=== PATIENT | female | born 1955 | race Caucasian/White ===

== ENCOUNTER 2019-07-27 09:11 | Day surgery (SDC) | payer MEDICARE ==
[2019-07-26 10:29] VITALS: BMI 34.7
[2019-07-27] MEDS ORDERED: Ketorolac Tromethamine 30 MG/ML VIAL ONE (09:41)
[2019-07-27] MEDS ORDERED: Acetaminophen 500 MG TAB ONE (09:41)
[2019-07-27 10:06] LABS: #Basophils 0.1 thou/uL (0.0-0.2); #Eosinphils 0.3 thou/uL (0.0-0.7); #Lymphocytes 2.1 thou/uL (1.20-3.40); #Monocytes 0.5 thou/uL (0.11-0.59); #Neutrophils 3.4 thou/uL (1.40-6.50); %Basophils 1.4 % (0.0-1.0); %Eosinophils 4.3 % (0.0-10.0); %Lymphocytes 32.6 % (21.0-51.0); %Monocytes 8.3 % (0.0-10.0); %Neutrophils 53.4 % (42.0-75.0); Hemoglobin 12.9 g/dL (12.0-16.0); Mean Corpuscular HGB CONC 33.4 g/dL (32.0-36.0); Mean Corpuscular Hemoglobin 31.2 pg (27.0-31.0); Mean Corpuscular Volume 93.4 fL (78.0-98.0); Mean Platelet Volume 8.9 fL (7.4-10.4); Platelet Count 253 thou/uL (130-400); RBC Distribution Width 12.8 % (11.5-14.5); Red Blood Cell (RBC) Count 4.13 mill/uL (4.20-5.40); White Blood Cell (WBC) Count 6.5 thou/uL (4.8-10.8)
[2019-07-27 10:31] LABS: ALT (SGPT) 27 U/L (8-55); AST (SGOT) 55 U/L (5-34); Albumin 4.1 g/dL (3.4-4.8); Alkaline Phosphatase 91 U/L (40-110); Anion Gap 12 mmol/L (10-20); BUN (Urea Nitrogen) 16 mg/dL (9.8-20.1); Bilirubin, Total 0.4 mg/dL (0.2-1.2); Calc. Creatinine Clearance 77 mL/min (70-130); Calcium 9.4 mg/dL (7.8-10.44); Carbon Dioxide 29 mmol/L (23-31); Chloride 103 mmol/L (98-107); Estimated GFR-MDRD 46; Globulin 2.9 g/dL (2.4-3.5); Glucose 87 mg/dL (80-115); Sodium 139 mmol/L (136-145)
[2019-07-27] MEDS ORDERED: Ondansetron PF 4 MG/2 ML Vial ONE ×2 (10:35→11:46)
[2019-07-27] MEDS ORDERED: Scopolamine 1.5 mg/72 hour Patch ONE (10:35)
[2019-07-27] MEDS ORDERED: Lidocaine 1% w/Epinephrine 1:100K 20 ML VIAL ONE (11:27)
[2019-07-27] MEDS ORDERED: Bupivacaine 0.25% HCL 30 ML VIAL ONE (11:27)
[2019-07-27] MEDS ORDERED: Fentanyl 100 MCG/2 ML VIAL ONE (11:28)
[2019-07-27] MEDS ORDERED: Iothalamate Meglumine 60% 50 ML VIAL FS ONE (11:37)
[2019-07-27] MEDS ORDERED: ePHEDrine/0.9% NaCl/PF SYRINGE 50 mg/10 ml ONE (11:46)
[2019-07-27] MEDS ORDERED: Glycopyrrolate 0.2 MG/ML 5 ML SYRINGE ONE (11:46)
[2019-07-27] MEDS ORDERED: PROPOFOL 200 MG/20 ML VIAL ONE (11:46)
[2019-07-27] MEDS ORDERED: Rocuronium Bromide 10 MG/ML (10ML VIAL) ONE (11:46)
[2019-07-27] MEDS ORDERED: Lidocaine 1% PF 5 ML VIAL ONE (11:46)
--- NOTE | 2019-07-27 12:56 | RAD ---
EXAM: Cholangiogram in surgery HISTORY: Cholelithiasis COMPARISON: None FINDINGS: Limited intraoperative fluoroscopic views were taken during a cholangiogram in surgery. The common bile duct is normal in caliber without filling defect. No leakage from the common bile duct. Contrast passes into the duodenum. No abnormality of the intrahepatic bile ducts. IMPRESSION: Unremarkable cholangiogram
--- NOTE | 2019-07-27 20:34 | OP ---
DATE OF PROCEDURE: 07/27/2019 PREOPERATIVE DIAGNOSIS: Symptomatic cholelithiasis with a recent liver function test elevation. POSTOPERATIVE DIAGNOSIS: Symptomatic cholelithiasis with a recent liver function test elevation. PROCEDURE PERFORMED: Laparoscopic cholecystectomy with intraoperative cholangiogram. ANESTHESIA: General endotracheal. INDICATIONS: The patient is an obese 64-year-old white female. She presented recently with symptoms referable to gallbladder and substantial liver function test elevation. She was taken to the operative room at this time for cholecystectomy and cholangiogram. DESCRIPTION OF OPERATION: Informed consent was obtained. The patient was taken to the operating room where general endotracheal anesthesia was obtained with the patient in the supine position. The abdomen was prepped with ChloraPrep, draped in sterile fashion. Local anesthetic was infiltrated using 0.25% Marcaine with epinephrine. Infraumbilical incision was created and a Veress needle was passed. Peritoneal cavity and pneumoperitoneum established using carbon dioxide to pressure of 15 mmHg. An 11 mm trocar port was passed through the same incision. Laparoscopic camera was passed through this port. Under direct vision, 3 additional 5 mm right upper quadrant ports were placed. Attention was turned to the liver and the gallbladder. The liver was without substantial abnormality. There was certainly no nodularity and there was minimal fatty change. The gallbladder was grasped and retracted in cephalad direction. There were no pericholecystic adhesions or evidence of acute inflammation. The infundibulum was grasped and retracted laterally and inferiorly. Careful dissection was carried at the apex of the gallbladder to identify the cystic duct and cystic artery. The artery was divided between clips leaving 2 on the side to remain within the abdomen. The duct was clipped proximally and a cholangiogram was obtained. This demonstrated normal ductal anatomy without substantial ductal dilatation and certainly no evidence of obstruction or intraluminal defect. The cholangiocatheter was removed. There was some sludge and small stone type material that refluxed back out of the duct after the procedure. The duct was doubly clipped and divided. The gallbladder was dissected out of the gallbladder fossa using electrocautery. The gallbladder was removed through the umbilical port site. The fascia was closed with 0 Vicryl suture using a GraNee needle. The right upper quadrant was copiously irrigated and all irrigant was aspirated. There was no evidence of bleeding and/or bile leak. The clips were intact. All ports and instruments were removed under direct vision. Pneumoperitoneum was carefully evacuated. 0.25% Marcaine with epinephrine was infiltrated into each port site. Skin edges approximated with 4-0 Monocryl subcuticular suture. Dermabond was placed externally. There were no complications. The patient tolerated the procedure well and was taken to recovery room in stable condition. Job ID: [id number]
== END 2019-07-27 15:05 | disposition home or self-care (01) ==
LOC: SDC 09:11
PROVIDERS: ATTEND Specialist
PROC: 0FT44ZZ Resection of Gallbladder, Percutaneous Endoscopic Approach (ICD-10-PCS; principal; 2019-07-27)
PROC: BF101ZZ Fluoroscopy of Bile Ducts using Low Osmolar Contrast (ICD-10-PCS; 2019-07-27)
DX: K80.10 Calculus of gallbladder with chronic cholecystitis without obstruction (principal); R79.89 Other specified abnormal findings of blood chemistry; I10 Essential (primary) hypertension; E78.00 Pure hypercholesterolemia, unspecified; E66.9 Obesity, unspecified; Z68.34 Body mass index [BMI] 34.0-34.9, adult; Z79.899 Other long term (current) drug therapy; Z88.1 Allergy status to other antibiotic agents
CPT/HCPCS: 36415; 47532; 80053; 85025; 88304; 93005; 93010; J0690; J1885; J2001; J2405; J2704; J3010; S0020

== ENCOUNTER 2020-07-26 11:42 | Inpatient (IN) | payer MEDICARE ==
[~2020-07-26 11:42] MED LIST: Iopamidol-370 76% 500 ML 1 ML ONE
[2020-07-26] MEDS ORDERED: Ondansetron PF 4 MG/2 ML Vial ONE (12:30)
[2020-07-26 13:39] LABS: #Eosinphils 0.3 thou/uL (0.0-0.7); #Lymphocytes 2.9 thou/uL (1.20-3.40); #Monocytes 0.8 thou/uL (0.11-0.59); #Neutrophils 3.6 thou/uL (1.40-6.50); %Basophils 0.5 % (0.0-1.0); %Eosinophils 3.7 % (0.0-10.0); %Lymphocytes 37.9 % (21.0-51.0); %Monocytes 10.4 % (0.0-10.0); %Neutrophils 47.5 % (42.0-75.0); Hemoglobin 11.7 g/dL (12.0-16.0); Mean Corpuscular HGB CONC 33.6 g/dL (32.0-36.0); Mean Corpuscular Hemoglobin 31.5 pg (27.0-31.0); Mean Corpuscular Volume 93.8 fL (78.0-98.0); Mean Platelet Volume 7.6 fL (7.4-10.4); Platelet Count 323 thou/uL (130-400); RBC Distribution Width 13.3 % (11.5-14.5); Red Blood Cell (RBC) Count 3.71 mill/uL (4.20-5.40); White Blood Cell (WBC) Count 7.7 thou/uL (4.8-10.8)
[2020-07-26 14:12] LABS: ALT (SGPT) 18 U/L (8-55); AST (SGOT) 40 U/L (5-34); Albumin 3.7 g/dL (3.4-4.8); Alkaline Phosphatase 104 U/L (40-110); Anion Gap 14 mmol/L (10-20); BUN (Urea Nitrogen) 5 mg/dL (9.8-20.1); Bilirubin, Total 0.4 mg/dL (0.2-1.2); Calc. Creatinine Clearance 0 mL/min (70-130); Carbon Dioxide 26 mmol/L (23-31); Chloride 100 mmol/L (98-107); Globulin 2.8 g/dL (2.4-3.5); Glucose 103 mg/dL (80-115); Potassium 4.6 mmol/L (3.5-5.1); Protein, Total 6.5 g/dL (5.8-8.1); Sodium 135 mmol/L (136-145)
[2020-07-26] MEDS ORDERED: Vancomycin HCl 25 MG/ML Oral PO SCH (14:45)
[2020-07-26] MEDS ORDERED: metroNIDAZOLE 500 MG/100 ML BAG ONE (15:12)
[2020-07-26 15:58] LABS: Bilirubin Negative (Negative); Blood, Urine Negative (Negative); Clarity Clear (Clear); Glucose, Urine (Dipstick) Normal (Negative); Ketone, Urine Negative (Negative); Leukocyte Negative Leu/uL (Negative); Nitrite Negative (Negative); Protein, Urine (Dipstick) Negative (Neg-Trace); Specific Gravity, Urine 1.004 (1.002-1.036); Urobilinogen Normal mg/dL (Less than 2); pH, Urine 6.5 (5.0-9.0)
[2020-07-26] MEDS ORDERED: Acetaminophen 325 MG TAB PO PRN (17:07)
[2020-07-26] MEDS ORDERED: Guaifenesin DM 100-10/5 ML UDCUP PO PRN (17:07)
[2020-07-26] MEDS ORDERED: Acetaminophen 650 MG Suppository PR PRN (17:07)
[2020-07-26] MEDS: Sodium Chloride 0.9% 1,000 ML IV SCH (18:11)
[2020-07-26] MEDS ORDERED: Calcium Carbonate 500 MG ChewTAB PO PRN (18:41)
[2020-07-26] MEDS ORDERED: traMADol HCl 50 MG TAB PO PRN (18:41)
[2020-07-26] MEDS: Vancomycin HCl 25 MG/ML Oral PO SCH (21:00)
[2020-07-26] MEDS: Rosuvastatin 10 MG TAB PO SCH (21:49)
[2020-07-26] MEDS: Enoxaparin Sodium 30 MG/0.3 ML SYRINGE SC SCH (21:49)
[2020-07-26] MEDS: Famotidine 20 MG TAB PO SCH (21:49)
[2020-07-26] MEDS: metroNIDAZOLE 500 MG in Premix Bag 1 BAG IVPB SCH (21:50)
[2020-07-26] MEDS: rOPINIRole HCl 1 MG TAB PO SCH (21:50)
[2020-07-26] MEDS: Ondansetron ODT 4 MG TAB PO PRN (22:59)
[2020-07-27] MEDS: Vancomycin HCl 25 MG/ML Oral PO SCH ×2 (02:51→11:20)
[2020-07-27] MEDS: Sodium Chloride 0.9% 1,000 ML IV SCH ×3 (03:09→21:42)
[2020-07-27] MEDS: Ondansetron PF 4 MG/2 ML Vial IVP PRN ×3 (03:10→21:40)
[2020-07-27] MEDS: rOPINIRole HCl 1 MG TAB PO SCH ×3 (05:30→21:39)
[2020-07-27] MEDS: metroNIDAZOLE 500 MG in Premix Bag 1 BAG IVPB SCH ×3 (05:30→21:41)
[2020-07-27 06:27] LABS: #Eosinphils 0.3 thou/uL (0.0-0.7); #Lymphocytes 2.9 thou/uL (1.20-3.40); #Monocytes 0.8 thou/uL (0.11-0.59); #Neutrophils 2.5 thou/uL (1.40-6.50); %Basophils 0.5 % (0.0-1.0); %Eosinophils 4.3 % (0.0-10.0); %Lymphocytes 44.5 % (21.0-51.0); %Monocytes 12.4 % (0.0-10.0); %Neutrophils 38.3 % (42.0-75.0); Hemoglobin 9.9 g/dL (12.0-16.0); Mean Corpuscular HGB CONC 32.9 g/dL (32.0-36.0); Mean Corpuscular Hemoglobin 30.6 pg (27.0-31.0); Mean Platelet Volume 7.3 fL (7.4-10.4); Platelet Count 259 thou/uL (130-400); RBC Distribution Width 13.3 % (11.5-14.5); Red Blood Cell (RBC) Count 3.25 mill/uL (4.20-5.40); White Blood Cell (WBC) Count 6.6 thou/uL (4.8-10.8)
[2020-07-27 06:46] LABS: Anion Gap 10 mmol/L (10-20); BUN (Urea Nitrogen) 4 mg/dL (9.8-20.1); Calc. Creatinine Clearance 106 mL/min (70-130); Calcium 8.1 mg/dL (7.8-10.44); Carbon Dioxide 24 mmol/L (23-31); Chloride 107 mmol/L (98-107); Glucose 114 mg/dL (80-115); Sodium 137 mmol/L (136-145)
[2020-07-27] MEDS: Saccharomyces boulardii 250 MG CAP PO SCH (08:18)
[2020-07-27] MEDS: Famotidine 20 MG TAB PO SCH ×2 (08:18→21:39)
[2020-07-27] MEDS: Bupropion 150 MG SR TAB PO SCH (08:18)
[2020-07-27] MEDS: pyridOXINE 50 MG (B6) TAB PO SCH (08:18)
[2020-07-27] MEDS: Magnesium Oxide 250 MG TAB PO SCH (08:18)
[2020-07-27] MEDS: Fish Oil 1,000 MG CAP PO SCH (08:19)
[2020-07-27] MEDS: Ubidecarenone 50 MG CAP PO SCH (08:19)
[2020-07-27] MEDS: Meloxicam 7.5 MG TAB PO SCH (08:19)
[2020-07-27] MEDS ORDERED: Lisinopril/Hydrochlorothiazide 10 mg/12.5 mg Tablet PO SCH (09:00)
[2020-07-27] MEDS: Acyclovir 200 mg Capsule PO SCH (11:20)
[2020-07-27 11:40] VITALS: BMI 35.6
[2020-07-27] MEDS: VANCOMYCIN 125 MG PO SCH ×3 (14:04→21:42)
[2020-07-27] MEDS: Metoclopramide HCl 10 MG/2 ML VIAL IVP SCH ×2 (14:08→21:41)
[2020-07-27] MEDS: Enoxaparin Sodium 30 MG/0.3 ML SYRINGE SC SCH (21:38)
[2020-07-27] MEDS: Rosuvastatin 10 MG TAB PO SCH (21:40)
[2020-07-28] MEDS: Metoclopramide HCl 10 MG/2 ML VIAL IVP SCH ×3 (05:31→21:00)
[2020-07-28] MEDS: rOPINIRole HCl 1 MG TAB PO SCH ×3 (05:31→21:01)
[2020-07-28] MEDS: metroNIDAZOLE 500 MG in Premix Bag 1 BAG IVPB SCH (05:36)
[2020-07-28] MEDS: Fish Oil 1,000 MG CAP PO SCH (08:17)
[2020-07-28] MEDS: pyridOXINE 50 MG (B6) TAB PO SCH (08:18)
[2020-07-28] MEDS: Bupropion 150 MG SR TAB PO SCH (08:19)
[2020-07-28] MEDS: Famotidine 20 MG TAB PO SCH ×2 (08:20→20:57)
[2020-07-28] MEDS: Magnesium Oxide 250 MG TAB PO SCH (08:21)
[2020-07-28] MEDS: Meloxicam 7.5 MG TAB PO SCH (08:23)
[2020-07-28] MEDS: Saccharomyces boulardii 250 MG CAP PO SCH (08:24)
[2020-07-28] MEDS: VANCOMYCIN 125 MG PO SCH ×3 (08:25→18:25)
[2020-07-28] MEDS: Ubidecarenone 50 MG CAP PO SCH (08:27)
[2020-07-28] MEDS: Acyclovir 200 mg Capsule PO SCH (08:38)
[2020-07-28 08:43] LABS: #Eosinphils 0.3 thou/uL (0.0-0.7); #Lymphocytes 2.1 thou/uL (1.20-3.40); #Monocytes 0.6 thou/uL (0.11-0.59); #Neutrophils 1.8 thou/uL (1.40-6.50); %Eosinophils 5.7 % (0.0-10.0); %Lymphocytes 44.5 % (21.0-51.0); %Monocytes 12.4 % (0.0-10.0); %Neutrophils 37.4 % (42.0-75.0); Hemoglobin 9.9 g/dL (12.0-16.0); Mean Corpuscular HGB CONC 34.3 g/dL (32.0-36.0); Mean Corpuscular Hemoglobin 32.5 pg (27.0-31.0); Mean Corpuscular Volume 94.9 fL (78.0-98.0); Mean Platelet Volume 7.3 fL (7.4-10.4); Platelet Count 252 thou/uL (130-400); RBC Distribution Width 13.3 % (11.5-14.5); Red Blood Cell (RBC) Count 3.04 mill/uL (4.20-5.40); White Blood Cell (WBC) Count 4.8 thou/uL (4.8-10.8)
[2020-07-28] MEDS: Sodium Chloride 0.9% 1,000 ML IV SCH ×2 (13:39→21:06)
[2020-07-28] MEDS ORDERED: metroNIDAZOLE 500 MG in Premix Bag 1 BAG IVPB SCH (14:00)
[2020-07-28] MEDS: VANCOMYCIN PO SCH ×2 (18:24→20:59)
[2020-07-28] MEDS: Enoxaparin Sodium 30 MG/0.3 ML SYRINGE SC SCH (20:57)
[2020-07-28] MEDS: Rosuvastatin 10 MG TAB PO SCH (21:00)
[2020-07-28] MEDS: metroNIDAZOLE 500 MG TAB PO SCH (21:01)
[2020-07-29] MEDS: rOPINIRole HCl 1 MG TAB PO SCH ×3 (05:33→20:41)
[2020-07-29] MEDS: metroNIDAZOLE 500 MG TAB PO SCH ×3 (05:33→20:42)
[2020-07-29] MEDS: Sodium Chloride 0.9% 1,000 ML IV SCH ×2 (05:37→20:51)
[2020-07-29 06:03] LABS: Anion Gap 11 mmol/L (10-20); BUN (Urea Nitrogen) Less than 4 mg/dL (9.8-20.1); Calc. Creatinine Clearance 139 mL/min (70-130); Carbon Dioxide 24 mmol/L (23-31); Chloride 109 mmol/L (98-107); Glucose 98 mg/dL (80-115); Potassium 3.4 mmol/L (3.5-5.1); Sodium 141 mmol/L (136-145)
[2020-07-29] MEDS: Ondansetron PF 4 MG/2 ML Vial IVP PRN ×2 (08:21→21:42)
[2020-07-29] MEDS ORDERED: Potassium Chloride 20 MEQ TAB PO SCH (08:45)
[2020-07-29] MEDS: Saccharomyces boulardii 250 MG CAP PO SCH (09:20)
[2020-07-29] MEDS: Famotidine 20 MG TAB PO SCH ×2 (09:20→20:43)
[2020-07-29] MEDS: Acyclovir 200 mg Capsule PO SCH (09:20)
[2020-07-29] MEDS: pyridOXINE 50 MG (B6) TAB PO SCH (09:22)
[2020-07-29] MEDS: Bupropion 150 MG SR TAB PO SCH (09:23)
[2020-07-29] MEDS: Fish Oil 1,000 MG CAP PO SCH (09:23)
[2020-07-29] MEDS: Ubidecarenone 50 MG CAP PO SCH (09:26)
[2020-07-29] MEDS: Meloxicam 7.5 MG TAB PO SCH (09:26)
[2020-07-29] MEDS: VANCOMYCIN PO SCH ×4 (09:27→20:43)
[2020-07-29] MEDS ORDERED: Fish Oil 1,000 MG CAP PO SCH (09:30)
[2020-07-29] MEDS: Rosuvastatin 10 MG TAB PO SCH (20:42)
[2020-07-29] MEDS: Enoxaparin Sodium 30 MG/0.3 ML SYRINGE SC SCH (20:43)
[2020-07-30] MEDS: Sodium Chloride 0.9% 1,000 ML IV SCH ×2 (03:57→14:11)
[2020-07-30] MEDS: Ondansetron ODT 4 MG TAB PO PRN (06:43)
[2020-07-30] MEDS: rOPINIRole HCl 1 MG TAB PO SCH ×2 (06:43→14:18)
[2020-07-30] MEDS: metroNIDAZOLE 500 MG TAB PO SCH ×2 (06:43→14:18)
[2020-07-30 07:23] VITALS: BP 164/89; TEMP 98
[2020-07-30] MEDS: pyridOXINE 50 MG (B6) TAB PO SCH (08:40)
[2020-07-30] MEDS: Acyclovir 200 mg Capsule PO SCH (08:40)
[2020-07-30] MEDS: Famotidine 20 MG TAB PO SCH (08:40)
[2020-07-30] MEDS: Meloxicam 7.5 MG TAB PO SCH (08:40)
[2020-07-30] MEDS: Bupropion 150 MG SR TAB PO SCH (08:41)
[2020-07-30] MEDS: VANCOMYCIN PO SCH ×2 (08:42→14:17)
[2020-07-30] MEDS: Saccharomyces boulardii 250 MG CAP PO SCH (08:43)
[2020-07-30] MEDS: Ubidecarenone 50 MG CAP PO SCH (08:43)
[2020-07-30] MEDS ORDERED: Fish Oil 1,000 MG CAP PO SCH (09:00)
[2020-07-30 12:02] LABS: Anion Gap 14 mmol/L (10-20); BUN (Urea Nitrogen) Less than 4 mg/dL (9.8-20.1); Calc. Creatinine Clearance 119 mL/min (70-130); Calcium 8.2 mg/dL (7.8-10.44); Carbon Dioxide 25 mmol/L (23-31); Chloride 106 mmol/L (98-107); Glucose 103 mg/dL (80-115); Potassium 3.6 mmol/L (3.5-5.1); Sodium 141 mmol/L (136-145)
[2020-07-30 12:06] LABS: Hemoglobin 11.2 g/dL (12.0-16.0); Mean Corpuscular HGB CONC 33.1 g/dL (32.0-36.0); Mean Corpuscular Hemoglobin 31.6 pg (27.0-31.0); Mean Corpuscular Volume 95.5 fL (78.0-98.0); Mean Platelet Volume 7.9 fL (7.4-10.4); Platelet Count 185 thou/uL (130-400); RBC Distribution Width 13.4 % (11.5-14.5); Red Blood Cell (RBC) Count 3.54 mill/uL (4.20-5.40); White Blood Cell (WBC) Count 5.4 thou/uL (4.8-10.8)
[2020-07-30 12:07] LABS: Band 12 % (5-11); Eosinophils 3 % (0-10); Lymphocytes 35 % (21-51); MDiff Complete? YES; Monocytes 8 % (0-10); Neutrophil 30 % (42-75); Platelet Morphology Comment Appears Adequate; Reactive Lymphocytes 12 % (0-10)
== END 2020-07-30 14:52 | disposition home or self-care (01) | DRG 373 ==
LOC: ERS 11:42 → T4-A 15:35 → OBSVTOIN 07-28 08:24
PROVIDERS: ADMIT Emergency Medicine; ATTEND Internal Medicine
DX: A04.72 Enterocolitis due to Clostridium difficile, not specified as recurrent (principal); Z86.16 Personal history of COVID-19; I10 Essential (primary) hypertension; E78.5 Hyperlipidemia, unspecified; Z96.652 Presence of left artificial knee joint; B00.9 Herpesviral infection, unspecified; F41.9 Anxiety disorder, unspecified; F32.9 Major depressive disorder, single episode, unspecified; E66.9 Obesity, unspecified; Z68.35 Body mass index [BMI] 35.0-35.9, adult; Z90.49 Acquired absence of other specified parts of digestive tract; Z90.710 Acquired absence of both cervix and uterus; Z82.49 Family history of ischemic heart disease and other diseases of the circulatory system; Z87.440 Personal history of urinary (tract) infections; Z88.1 Allergy status to other antibiotic agents; Z79.899 Other long term (current) drug therapy; Z80.0 Family history of malignant neoplasm of digestive organs
CPT/HCPCS: 36415; 71045; 74177; 80048; 80053; 81003; 82274; 83605; 84484; 85025; 87040; 93005; 96361; 96365; 96372; 96375; 96376; G0378; J1650; J2405; J2765; Q0162; Q9967

== ENCOUNTER 2021-11-06 20:46 | Emergency (ER) | payer MEDICARE ==
[2021-11-06] MEDS ORDERED: Ketorolac Tromethamine 30 MG/ML VIAL ONE (21:43)
[2021-11-06] MEDS ORDERED: Morphine 4 MG/ML VIAL ONE (21:43)
[2021-11-06] MEDS ORDERED: Ondansetron PF 4 MG/2 ML Vial ONE (21:43)
[2021-11-06 22:09] LABS: #Basophils 0.1 thou/uL (0.0-0.2); #Eosinphils 0.1 thou/uL (0.0-0.7); #Monocytes 0.8 thou/uL (0.11-0.59); %Basophils 0.4 % (0.0-1.0); %Eosinophils 0.4 % (0.0-10.0); %Lymphocytes 21.3 % (21.0-51.0); %Monocytes 6.1 % (0.0-10.0); %Neutrophils 71.8 % (42.0-75.0); Hemoglobin 13.3 g/dL (12.0-16.0); Mean Corpuscular HGB CONC 32.6 g/dL (32.0-36.0); Mean Corpuscular Hemoglobin 30.6 pg (27.0-31.0); Mean Corpuscular Volume 93.7 fL (78.0-98.0); Platelet Count 339 thou/uL (130-400); RBC Distribution Width 14.3 % (11.5-14.5); Red Blood Cell (RBC) Count 4.35 mill/uL (4.20-5.40); White Blood Cell (WBC) Count 13.9 thou/uL (4.8-10.8)
[2021-11-06 22:33] LABS: ALT (SGPT) 22 U/L (8-55); AST (SGOT) 46 U/L (5-34); Albumin 4.1 g/dL (3.4-4.8); Alkaline Phosphatase 116 U/L (40-110); Anion Gap 14 mmol/L (10-20); BUN (Urea Nitrogen) 21 mg/dL (9.8-20.1); Bilirubin, Total 0.4 mg/dL (0.2-1.2); Calc. Creatinine Clearance 0 mL/min (70-130); Carbon Dioxide 26 mmol/L (23-31); Chloride 102 mmol/L (98-107); Globulin 3.1 g/dL (2.4-3.5); Glucose 122 mg/dL (80-115); Lipase 52 U/L (8-78); Potassium 4.5 mmol/L (3.5-5.1); Protein, Total 7.2 g/dL (5.8-8.1); Sodium 137 mmol/L (136-145)
== END 2021-11-07 00:11 | disposition home or self-care (01) ==
LOC: ERS 20:46
DX: R07.81 Pleurodynia (principal); E78.5 Hyperlipidemia, unspecified; I10 Essential (primary) hypertension
CPT/HCPCS: 36415; 71045; 71275; 80053; 83690; 84484; 85025; 93005; 96374; 96375; J1885; J2270; J2405

== ENCOUNTER 2023-03-07 08:07 | Outpatient (CLI) | payer MEDICARE | END 2023-03-07 08:08 | disposition home or self-care (01) | LOC: NM 08:07 | PROVIDERS: ATTEND Physician Assistant Medical | DX: R13.19 Other dysphagia (principal); K21.9 Gastro-esophageal reflux disease without esophagitis; K11.7 Disturbances of salivary secretion; R14.2 Eructation | CPT/HCPCS: 78264; A9541 ==